=== PATIENT | female | born 1990 | race Caucasian/White ===

== ENCOUNTER → 2017-06-29 11:55 | Outpatient (CLI) | payer OTHER, SELFPAY ==
--- NOTE | 2017-06-29 10:00 | BRBX_PTH ---
PATIENT: XIMENA RIVERA LOC: [facility] U#:[id number] AGE/SX: 35/F ROOM: RE06/29/[address]: Dr. Rory Yip MD : 1990 BED: DIS: SPEC #: [id number] RECD: 06/29/17 11:53 STATUS: MARILOU YESSI #: [id number] ELÍAS: 06/29/17 10:[address]: Rory Yip DEPT: SURGICAL PATHOLOGY RECD BY: Nahum Saleh Tissues: Right breast, NOS Procedures: Surgery Specimen Level IV HEADER OPERATION: Ultrasound-guided needle core biopsy right breast PRE-OP DIAGNOSIS: Abnormal ultrasound TISSUE SUBMITTED: Needle core biopsy right breast ISCHEMIC TIME: <30 seconds FIXATION TIME: 9.5 hours MICROSCOPIC DIAGNOSIS Right breast, ultrasound-guided needle core biopsy: Focal fibrocystic changes. Focal fat necrosis and chronic inflammation. Negative for atypia or malignancy in the submitted specimen. SJ:deborah 06/30/17 COMMENT Correlation with clinical, radiologic findings and appropriate follow up are necessary. MICROSCOPIC DESCRIPTION Slides are reviewed. GROSS DESCRIPTION Received in fixative is one container labeled with the patient's name and designated right breast biopsy. The specimen consists of two elongated cores of white-yellow soft tissue. Each core has an average length of 2 cm and maximal diameter of 0.1 cm. The specimen is totally submitted in one cassette. / AM:deborah 06/29/17 TC:5 CPT: 44272
== END ==
PROVIDERS: Visit Provider Surgery
DX: R92.8 Other abnormal and inconclusive findings on diagnostic imaging of breast (principal); N60.11 Diffuse cystic mastopathy of right breast
CPT/HCPCS: 88305

== ENCOUNTER → 2020-01-23 15:22 | Outpatient (CLI) | payer OTHER, SELFPAY ==
[2017-06-26 13:51] VITALS: BMI 25.7
--- NOTE | 2020-01-23 | COLBX_PTH ---
PATIENT: XIMENA RIVERA LOC: [facility] U#:[id number] AGE/SX: 35/F ROOM: RE01/23/[address]: Dr. Adam Rock MD : 1990 BED: DIS: SPEC #: [id number] RECD: 01/23/20 15:09 STATUS: MARILOU YESSI #: [id number] ELÍAS: 01/23/20 00:[address]: Adam Rock DEPT: SURGICAL PATHOLOGY RECD BY: César Garces ENTERED: 01/24/20 08:41 SP TYPE: COLON BX OT DR: Dr. Roxana Bills, [facility] Tissues: A - Cecum, NOS B - Rectum, NOS Procedures: Surgery Specimen Level IV HEADER OPERATION: Colonoscopy PRE-OP DIAGNOSIS: Rectal bleed TISSUE SUBMITTED: A - Ileocecal valve/ileum, rule out Crohn's, B - Rectal biopsies, rule out proctitis MICROSCOPIC DIAGNOSIS A. Ileocecal valve/ileum, biopsy: Acute colitis. See comment. B. Rectum, biopsy: No pathologic change. AM:deborah 01/25/20 COMMENT A. Sections show focal disruption of mucosa with cryptitis and focal transmural inflammation. Significant glandular distortion is not identified and no granulomas are seen. There is no evidence of dysplasia. Clinical correlation is suggested. MICROSCOPIC DESCRIPTION Slides are reviewed. GROSS DESCRIPTION A - Received in fixative is one container labeled with the patient's name and designated ileocecal valve/ileum. The specimen consists of multiple irregular fragments of light arreaga soft tissue that in aggregate measure 1.5 x 0.5 x 0.1 cm. The specimen is totally submitted in one cassette. B - Received in fixative is one container labeled with the patient's name and designated rectal biopsy. The specimen consists of multiple irregular fragments of light arreaga soft tissue that in aggregate measure 0.6 x 0.2 x 0.1 cm. The specimen is totally submitted in one cassette. / SJ:deborah 01/24/20 TC:2 CPT: 97254 x2
== END ==
PROVIDERS: Referring Provider Internal Medicine Gastroenterology; Visit Provider Internal Medicine Gastroenterology
DX: K62.5 Hemorrhage of anus and rectum (principal)
CPT/HCPCS: 88305

== ENCOUNTER → 2020-03-16 09:10 | Outpatient (CLI) | payer OTHER, SELFPAY ==
[2017-06-26 13:51] VITALS: BMI 25.7
== END ==
PROVIDERS: Referring Provider Internal Medicine Gastroenterology; Visit Provider Internal Medicine Gastroenterology
DX: K50.00 Crohn's disease of small intestine without complications (principal)
CPT/HCPCS: 36415